=== PATIENT | male | born 1995 | race Caucasian/White ===

== ENCOUNTER 2022-06-22 15:47 | Outpatient (CLI) | payer BC, SELFPAY ==
[2022-06-22 17:29] LABS: Free T4 Free Thyroxine 1.34 ng/mL (0.78-2.19)
[2022-06-25 12:21] LABS: Testosterone Total 366 ng/dL (250-1100)
== END 2022-06-22 15:48 | disposition home or self-care (01) ==
LOC: ANHLAB 15:48
PROVIDERS: PCP Family Medicine; Visit Provider Family Medicine
DX: E03.9 Hypothyroidism, unspecified (principal); E66.8 Other obesity
CPT/HCPCS: 36415; 84402; 84403; 84439; 84443; 84480

== ENCOUNTER 2022-09-18 09:25 | Outpatient (CLI) | payer BC, SELFPAY ==
[2022-09-18 10:02] LABS: Basophils Absolute Auto 0.1 K/mm3 (0.0-0.1); Eosinophils Absolute Auto 0.2 K/mm3 (0-0.3); Eosinophils Percent Auto 2.4 % (0-4.4); Hematocrit 45.8 % (42.0-52.0); Hemoglobin 15.2 g/dL (14.0-18.0); Immature Granulocyte Absolute 0.03 K/mm3 (0.00-0.031); Immature Granulocyte Percent A 0.4 % (0-0.5); Lymphocytes Absolute Auto 2.25 K/mm3 (0.9-3.2); Lymphocytes Percent Auto 31.5 % (18.3-44.2); Mean Corpuscular HGB Conc 33.2 g/dl (32-36); Mean Corpuscular Hemoglobin 30.2 pg (26-34); Mean Corpuscular Volume 90.9 fl (80-100); Mean Platelet Volume 11.1 fl (7.4-10.4); Monocytes Absolute Auto 0.5 K/mm3 (0.1-0.6); Monocytes Percent Auto 7.4 % (2.6-8.5); Neutrophils Absolute Auto 4.1 K/mm3 (1.3-6.7); Neutrophils Percent Auto 57.3 % (45.5-73.1); Platelet Count Result 216 k/mm3 (150-375); Red Blood Count 5.04 M/mm3 (4.6-6.20); Red Cell Distribution Width 12.6 % (11.5-14.5); White Blood Count 7.1 K/mm3 (4.5-10.0)
[2022-09-18 10:18] LABS: Alanine Aminotransferase 25 U/L (6-50); Albumin Level 4.4 g/dL (3.5-5.1); Alkaline Phosphatase 60 U/L (38-126); Anion Gap 3 mmol/L (8-16); Aspartate Amino Transferase 25 U/L (17-59); Bilirubin,Total 0.9 mg/dL (0.2-1.3); Blood Urea Nitrogen 17 mg/dL (9-20); Calcium 8.3 mg/dL (8.4-10.2); Carbon Dioxide 32 mmol/L (22-30); Chloride 104 mmol/L (98-107); Cholesterol 113 mg/dL (0-200); Estimated Glomerular Filt Rate > 60; Glucose 84 mg/dL (65-110); HDL Direct 29 mg/dL; Potassium 4.1 mmol/L (3.4-5.0); Sodium 139 mmol/L (137-145); Triglycerides 101 mg/dL (<150)
[2022-09-18 10:29] LABS: LDL Cholesterol Direct 65 mg/dL
== END 2022-09-18 09:26 | disposition home or self-care (01) ==
LOC: ANHLAB 09:27
PROVIDERS: PCP Family Medicine; Visit Provider Family Medicine
DX: E03.9 Hypothyroidism, unspecified (principal); E78.2 Mixed hyperlipidemia; I10 Essential (primary) hypertension
CPT/HCPCS: 36415; 80053; 80061; 84439; 84443; 84480; 85025

== ENCOUNTER 2023-06-12 09:34 | Outpatient (CLI) | payer BC, SELFPAY ==
[2023-06-12 10:15] LABS: Alanine Aminotransferase 20 U/L (6-50); Albumin Level 4.2 g/dL (3.5-5.1); Alkaline Phosphatase 71 U/L (38-126); Anion Gap 5 mmol/L (8-16); Aspartate Amino Transferase 23 U/L (17-59); Bilirubin,Total 0.6 mg/dL (0.2-1.3); Blood Urea Nitrogen 20 mg/dL (9-20); Calcium 8.8 mg/dL (8.4-10.2); Carbon Dioxide 28 mmol/L (22-30); Chloride 106 mmol/L (98-107); Estimated Glomerular Filt Rate > 60; Glucose 93 mg/dL (65-110); Potassium 4.1 mmol/L (3.4-5.0); Sodium 139 mmol/L (137-145)
[2023-06-12 11:37] LABS: Free T4 Free Thyroxine 1.18 ng/mL (0.78-2.19)
[2023-06-16 05:38] LABS: Triiodothyronine T3 Free 3.2 pg/mL (2.3-4.2)
== END 2023-06-12 09:35 | disposition home or self-care (01) ==
LOC: ANHLAB 09:35
PROVIDERS: PCP Family Medicine; Visit Provider Physician Assistant
DX: E03.9 Hypothyroidism, unspecified (principal); I10 Essential (primary) hypertension
CPT/HCPCS: 36415; 80053; 84439; 84443; 84481

== ENCOUNTER 2024-02-19 08:46 | Outpatient (CLI) | payer BC, SELFPAY ==
[2024-02-19 09:10] LABS: Basophils Percent Auto 0.6 % (0.2-1.2); Eosinophils Absolute Auto 0.2 K/mm3 (0-0.3); Eosinophils Percent Auto 2.3 % (0-4.4); Hemoglobin 16.2 g/dL (14.0-18.0); Immature Granulocyte Absolute 0.02 K/mm3 (0.00-0.031); Immature Granulocyte Percent A 0.3 % (0-0.5); Lymphocytes Absolute Auto 1.96 K/mm3 (0.9-3.2); Lymphocytes Percent Auto 27.9 % (18.3-44.2); Mean Corpuscular HGB Conc 34.5 g/dl (32-36); Mean Corpuscular Hemoglobin 30.6 pg (26-34); Mean Corpuscular Volume 88.8 fl (80-100); Mean Platelet Volume 10.8 fl (7.4-10.4); Monocytes Absolute Auto 0.4 K/mm3 (0.1-0.6); Neutrophils Absolute Auto 4.4 K/mm3 (1.3-6.7); Neutrophils Percent Auto 62.9 % (45.5-73.1); Platelet Count Result 203 k/mm3 (150-375); Red Blood Count 5.29 M/mm3 (4.6-6.20); Red Cell Distribution Width 12.9 % (11.5-14.5)
[2024-02-19 09:25] LABS: Alanine Aminotransferase 24 U/L (6-50); Albumin Level 4.3 g/dL (3.5-5.1); Alkaline Phosphatase 68 U/L (38-126); Anion Gap 6 mmol/L (4-12); Aspartate Amino Transferase 29 U/L (17-59); Bilirubin,Total 0.7 mg/dL (0.2-1.3); Blood Urea Nitrogen 20 mg/dL (9-20); Calcium 8.8 mg/dL (8.4-10.2); Carbon Dioxide 28 mmol/L (22-30); Chloride 104 mmol/L (98-107); Cholesterol 131 mg/dL (0-200); Estimated Glomerular Filt Rate > 60; Glucose 94 mg/dL (65-110); HDL Direct 41 mg/dL; Potassium 4.7 mmol/L (3.4-5.0); Sodium 138 mmol/L (137-145); Triglycerides 78 mg/dL (<150)
[2024-02-19 09:36] LABS: LDL Cholesterol Direct 63 mg/dL
[2024-02-19 09:56] LABS: Total Triiodothyronine (T3) 1.69 NG/ML (0.97-1.69)
[2024-02-19 10:17] LABS: Free T4 Free Thyroxine 0.89 ng/mL (0.78-2.19)
== END 2024-02-19 08:47 | disposition home or self-care (01) ==
LOC: ANHLAB 08:50
PROVIDERS: PCP Family Medicine; Visit Provider Family Medicine
DX: E03.9 Hypothyroidism, unspecified (principal); I10 Essential (primary) hypertension; E78.2 Mixed hyperlipidemia
CPT/HCPCS: 36415; 80053; 80061; 84439; 84443; 84480; 85025

== ENCOUNTER 2024-06-20 08:02 | Outpatient (CLI) | payer BC, SELFPAY ==
--- OUTSIDE RECORDS SUMMARY | 2024-06-20 08:16 | XMS_ITS | Encounter Summary ---
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
--- OUTSIDE RECORDS SUMMARY | 2024-06-20 08:16 | XMS_ITS | Clinical Summary ---
Author Organization [facility] Address [address] [facility] [place] [address] Care Team Providers Care Leveling Machine Operator Name Role Phone Latanya Edward MD Primary Care Provider [phone] Source Comments [facility],non-[facility] Affiliates and Associated Physician Practices is amultiple site organization consisting of ambulatory clinics and hospital sitesin [place], [place], [place] and [place]. This disclosure is being madepursuant to the Care Everywhere program and may not contain all information available regarding this patient. Last updated 17.[facility] Allergies Active Allergy Reactions Criticality Noted Date Comments Cefprozil 05/22/2010 Medications * Be aware that medications may not be up to date on this document. Alwaysverify current medications with the patient. Medication Sig Dispensed Refills Start Date End Date Status citalopram (CELEXA) 40 MG tablet Take 40 mg by mouth daily. Active methylphenidate CR (CONCERTA) 36 MG tablet Take 36 mg by mouth every morning. Active methylphenidate CR (CONCERTA) 54 MG tablet Take 54 mg by mouth every morning. Active ziprasidone (GEODON) 40 MG capsule Take 20 mg by mouth once daily. Active BuPROPion HCl (WELLBUTRIN XL PO) Take by mouth. Ac tive nystatin (MYCOSTATIN) 229743 UNIT/GM ointment Apply to affected area 2 times daily. 30 g 3 02/01/2012 Active ferrous sulfate 325 (65 FE) MG tablet Take 1 Tab by mouth 2 times daily. Take w/ vitamin C such as OJ. Avoid dairy within 30 minutes. Miralax or generic for tummy upset. 62 Tab 2 05/10/2012 Active levothyroxine (SYNTHROID) 50 MCG tabletIndications:Unspe cified hypothyroidism Take 1 Tab by mouth daily before breakfast. 90 Tab 1 01/29/2014 Active levothyroxine (SYNTHROID) 200 MCG tabletIndications:Unspe cified hypothyroidism Take 1 Tab by mouth once daily 90 Tab 1 10/08/2014 Active Active Problems Problem Noted Date Diagnosed Date Hypothyroidism 01/24/2013 Overview (12/27/2014): Assessment & Plan (01/24/2013 2:48 PM CDT): 1) return in [address] Fink 2) continue levothyroxine 250 mcg daily Social History Tobacco Use Types Packs/Day Years Used Date Smoking Tobacco: Never Alcohol Use Standard Drinks/Week Comments Not Asked 0 (1 standard drink = 0.6 oz pur e alcohol) Sex and Gender Information Value Date Recorded Sex Assigned at Not on file Gender Identity Not on file Sexual Orientation Not on file Last Filed Vital Signs Vital Sign Reading Time Taken Comments Blood Pressure 120/80 01/19/2013 9:57 AM CDT Pulse 88 01/19/2013 9:57 AM CDT Temperature - - Respiratory Rate 20 01/19/2013 9:57 AM CDT Oxygen Saturation - - Inhaled Oxygen Concentration - - Weight 187.8 kg (414 lb) 01/19/2013 9:57 AM CDT Height 181.5 cm (5' 11.46 ) 01/19/2013 9:57 AM C DT Body Mass Index 57.01 01/19/2013 9:57 AM CDT Plan of Treatment Health Maintenance Due Date Last Done Comments HIV SCREENING 06/07/2011 HEPATITIS C SCREENING 06/02/2014 DTAP/TDAP/TD VACCINES (1 - Tdap) 06/07/2015 HEPATITIS B VACCINE (1 of 3 - 19+ 3-dose series) 06/07/2015 COVID-19 VACCINE ( - 2023-2 5 season) 2023 INFLUENZA VACCINE (#1) 2023 DEPRESSION SCREENING 03/29/2024 ZOSTER VACCINE (1 of 2) 2046 HIB VACCINE Aged Out No longer eligi ble based on patient's age to complete this topic HPV VACCINE Aged Out No longer eligi ble based on patient's age to complete this topic MENINGOCOCCAL (Group B) VACC INE SHARED DECISION-MAKING Aged Out No longer eligibl e based on patient's age to complete this topic MENINGOCOCCAL GROUPS A/C/Y/W VACCINE Aged Out No longer eligible b ased on patient's age to complete this topic PNEUMOCOCCAL VACCINE Aged Out No long er eligible based on patient's age to complete this topic Care Teams Leveling Machine Operator Relationship Specialty Start Date End Date Latanya Edward MD [address] [place] [address] PCP - General 04/13/11
--- OUTSIDE RECORDS SUMMARY | 2024-06-20 08:16 | XMS_ITS | Encounter Summary ---
Author Organization [employer] Address [address] [place] [address] Care Team Providers Care Retail Cosmetics Sales Counter Manager Name Role Phone Unavailable Primary Care Provider Unavailabl e Encounter Details Date Type Department Care Team (Late st Contact Info) Description 06/08/2007 Outpatient Historical [facility], Authorized P [place] [address] [facility] [place] [address] [place] [address] [place] [address] Social History Tobacco Use Types Packs/Day Years Used Date Smoking Tobacco: Never Assessed Sex and Gender Information Value Date Recorded Sex Assigned at Not on file 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
--- OUTSIDE RECORDS SUMMARY | 2024-06-20 08:16 | XMS_ITS | Encounter Summary ---
Author Organization [facility] Address [address] [facility] [place] [address] Care Team Providers Care Solderer Torch Name Role Phone Carlos Garcia MD Primary Care Provider Faustino Edward MD Primary Care Provider [phone] Reason for Visit * Reason Onset Date Comments Parent Return Call 10/10/2010 Encounter Details Date Type Department Care Team (Late st Contact Info) Description 10/10/2010 Telephone [facility] Pediatrics - Endocrinology [address] [place] [address] [place] [address] [place] [address] Parent Return Call Social History Tobacco Use Types Packs/Day Years Used Date Smoking Tobacco: Never Assessed Sex and Gender Information Value Date Recorded Sex Assigned at Not on file Gender Identity Not on file Sexual Orientation Not on file documented as of this encounter Miscellaneous Notes * Telephone Encounter - Jenny Ramesh - 10/10/2010 1:56 PM CDT Mrs. Ruiz returned your call. documented in this encounter Plan of Treatment Not on file documented as of this encounter Visit Diagnoses Not on filedocumented in this encounter Care Teams Solderer Torch Relationship Specialty Start Date End Date Carlos Garcia MD [address] [place] [address] PCP - General 05/22/10 04/12/11 Faustino Edward MD [address] [place] [address] PCP - General 04/13/11 documented as of this encounter
--- OUTSIDE RECORDS SUMMARY | 2024-06-20 08:16 | XMS_ITS | Patient Health Record ---
Author Organization [facility] Address [address] [place] [address] Care Team Providers Care Champagne Maker Name Role Phone Jacob Rogers Primary Care Provider [phone] Reason For Referral No Information Plan Of Treatment No Information
--- OUTSIDE RECORDS SUMMARY | 2024-06-20 08:16 | XMS_ITS | Clinical Summary ---
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
--- OUTSIDE RECORDS SUMMARY | 2024-06-20 08:16 | XMS_ITS | Encounter Summary ---
Author Organization [facility] Address [address] [facility] [place] [address] Care Team Providers Care Nurses Assistant Name Role Phone Carlos Garcia MD Primary Care Provider Faustino Edward MD Primary Care Provider [phone] Reason for Visit * Reason Onset Date Comments Results 07/17/2010 Mom would like t o get labs at [facility] in [place]. Please call her with instructions Encounter Details Date Type Department Care Team (Late st Contact Info) Description 07/17/2010 Telephone [facility] Pediatrics - Endocrinology [facility] [place] [address] [place] [address] [place] [address] Results (Mom would like to get labs at [facility] in [place]. Please call her with instructions) Social History Tobacco Use Types Packs/Day Years Used Date Smoking Tobacco: Never Assessed Sex and Gender Information Value Date Recorded Sex Assigned at Not on file Gender Identity Not on file Sexual Orientation Not on file documented as of this encounter Miscellaneous Notes * Telephone Encounter - Adriano Landrum MD - 07/23/2010 4:39 PM CDT Paco's TSH has risen to 17.82, confirming the diagnosis of primary hypothyroidism. I made mom aware of his results and asked her to restart his levothyroxine 175 mcg daily, the dose he was previously on. He will follow up as planned. documented in this encounter Plan of Treatment Scheduled Orders Name Type Priority Associated Diagnoses Orde r Schedule T4 TOTAL Lab Routine Acquired hypothyroidism Ordered: 07/17/2010 TSH Lab Routine Acquired hypothyroidism Ordered: 07/17/2010 documented as of this encounter Visit Diagnoses Diagnosis Acquired hypothyroidism- Primary Unspecified hypothyroidism documented in this encounter Care Teams Nurses Assistant Relationship Specialty Start Date End Date Carlos Garcia MD [address] [place] [address] PCP - General 05/22/10 04/12/11 Faustino Edward MD [address] [place] [address] PCP - General 04/13/11 documented as of this encounter
--- OUTSIDE RECORDS SUMMARY | 2024-06-20 08:16 | XMS_ITS | Encounter Summary ---
Author Organization [facility] Address [address] [facility] [address] Care Team Providers Care News Videotape Editor Name Role Phone Carlos Garcia MD Primary Care Provider Faustino Edward MD Primary Care Provider [phone] Reason for Visit * Reason Onset Date Comments Parent Return Call 03/06/2011 Mom called, w ants new dose called into pharmacy Encounter Details Date Type Department Care Team (Late st Contact Info) Description 03/06/2011 Telephone [facility] Pediatrics - Endocrinology [address] [place] [address] [place] [address] [place] [address] Parent Return Call (Mom called, wants new dose called into pharmacy) Social History Tobacco Use Types Packs/Day Years [...] hypothyroidism documented in this encounter Care Teams News Videotape Editor Relationship Specialty Start Date End Date Carlos Garcia MD [address] [place] [address] PCP - General 05/22/10 04/12/11 Faustino Edward MD [address] [place] [address] PCP - General 04/13/11 documented as of this encounter
[2024-06-20 09:52] LABS: Free T4 Free Thyroxine 1.49 ng/dL (0.78-2.19)
== END 2024-06-20 08:03 | disposition home or self-care (01) ==
LOC: ANHLAB 08:04
PROVIDERS: PCP Family Medicine; Visit Provider Physician Assistant
DX: E03.9 Hypothyroidism, unspecified (principal)
CPT/HCPCS: 36415; 84439; 84443

== ENCOUNTER 2024-11-29 08:41 | Outpatient (CLI) | payer BC, SELFPAY ==
--- OUTSIDE RECORDS SUMMARY | 2024-11-29 09:05 | XMS_ITS | Encounter Summary ---
Author Organization [facility] Address [address] [place] [address] Care Team Providers Care Inbound Sales Consultant Name Role Phone Unavailable Primary Care Provider Unavailabl e Encounter Details Date Type Department Care Team (Late st Contact Info) Description 06/08/2007 Emergency [facility], Authorized P [place] [address] [facility] [place] [address] [place] [address] [place] [address] Social History Tobacco Use Types Packs/Day Years Used Date Smoking Tobacco: Never Assessed Sex and Gender Information Value Date Recorded Sex Assigned at Not on file 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
--- OUTSIDE RECORDS SUMMARY | 2024-11-29 09:05 | XMS_ITS | Encounter Summary ---
Author Organization [facility] Address [address] [facility] [address] Care Team Providers Care Clothes Ironer Name Role Phone Carlos Garcia MD Primary Care Provider Faustino Edward MD Primary Care Provider [phone] Reason for Visit * Reason Onset Date Comments Parent Return Call 10/10/2010 Encounter Details Date Type Department Care Team (Late st Contact Info) Description 10/10/2010 Telephone [facility] Pediatrics - Endocrinology [address] [place] [address] [place] [address] [place] [address] Parent Return Call Social History Tobacco Use Types Packs/Day Years Used Date Smoking Tobacco: Never Assessed Sex and Gender Information Value Date Recorded Sex Assigned at Not on file 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 Ruiz returned your call. documented in this encounter Plan of Treatment Not on file documented as of this encounter Visit Diagnoses Not on filedocumented in this encounter Care Teams Clothes Ironer Relationship Specialty Start Date End Date Carlos Garcia MD [address] [place] [address] PCP - General 05/22/10 04/12/11 Faustino Edward MD [address] [place] [address] PCP - General 04/13/11 documented as of this encounter
--- OUTSIDE RECORDS SUMMARY | 2024-11-29 09:05 | XMS_ITS | Encounter Summary ---
Author Organization [facility] Address [address] [place] [place] [address] Care Team Providers Care Assistant Broker Name Role Phone Carlos Garcia MD Primary Care Provider Faustino Edward MD Primary Care Provider [phone] Reason for Visit * Reason Onset Date Comments Results 07/17/2010 Mom would like t o get labs at [facility] in [place]. Please call her with instructions Encounter Details Date Type Department Care Team (Late st Contact Info) Description 07/17/[address] [facility] Pediatrics - Endocrinology [address] [place] [address] [place] [address] [place] [address] Results (Mom would like to get labs at [facility] in [place]. 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
--- OUTSIDE RECORDS SUMMARY | 2024-11-29 09:05 | XMS_ITS | Clinical Summary ---
Author Organization [facility] Address [address] [facility] [place] [address] Care Team Providers Care Special Delivery Clerk Name Role Phone Latanya Edward MD Primary Care Provider [phone] Source Comments [facility],non-[facility] Affiliates and Associated Physician Practices is amultiple site organization consisting of ambulatory clinics and hospital sitesin [place], [place], [place] and [place]. This disclosure is being madepursuant to the Care Everywhere program and may not contain all information available regarding this patient. Last updated 17.[facility] Allergies Active Allergy Reactions Criticality Noted Date Comments Cefprozil 05/22/2010 Medications * Be aware that medications may not be up to date on this document. Alwaysverify current medications with the patient. citalopram (CELEXA) 40 MG tablet Take 40 mg by mouth daily. Active methylphenidate CR (CONCERTA) 36 MG tablet Take 36 mg by mouth every morning. Active methylphenidate CR (CONCERTA) 54 MG tablet Take 54 mg by mouth every morning. Active ziprasidone (GEODON) 40 MG capsule Take 20 mg by mouth once daily. Active BuPROPion HCl (WELLBUTRIN XL PO) Take by mouth. Active nystatin (MYCOSTATIN) 451309 UNIT/GM ointment Apply to affected area 2 times daily. 30 g 3 2 Active ferrous sulfate 325 (65 FE) MG tablet Take 1 Tab by mouth 2 times daily. Take w/ vitamin C such as OJ. Avoid dairy within 30 minutes. Miralax or generic for tummy upset. 62 Tab 2 3 Active levothyroxine (SYNTHROID) 50 MCG tabletIndications:U nspecified hypothyroidism Take 1 Tab by mouth daily before breakfast. 90 Tab 1 4 Active levothyroxine (SYNTHROID) 200 MCG tabletIndications:U nspecified hypothyroidism Take 1 Tab by mouth once daily 90 Tab 1 5 Active Active Problems Problem Noted Date Diagnosed [...] on file Legal Sex Male 5:39 AM INTEGRATION SPECIALIST Gender Identity Not on file Sexual [...] 9:57 AM CDT Height 181.5 cm (5' 11.46) 01/19/2013 9:57 AM C DT Body Mass Index 57.01 01/19/2013 9:57 AM CDT Plan of Treatment Health Maintenance Due Date Last Done Comments HIV SCREENING 06/07/2011 HEPATITIS C SCREENING 06/02/2014 DTAP/TDAP/TD VACCINES (1 - Tdap) 06/07/2015 HEPATITIS B VACCINE (1 of 3 - 19+ 3-dose series) 06/07/2015 HPV VACCINE (1 - 3-dose SCDM series) 06/07/2023 DEPRESSION SCREENING 03/29/2024 COVID-19 VACCINE (2023-2 5 season) 2024 INFLUENZA VACCINE (#1) 2024 ZOSTER VACCINE (1 of 2) 2046 HIB [...] on patient's age to complete this topic Insurance [facility] Care Teams Special Delivery Clerk Relationship Specialty Start Date End Date Latanya Edward MD [address] [place] [address] PCP - General 04/13/11
--- OUTSIDE RECORDS SUMMARY | 2024-11-29 09:05 | XMS_ITS | Encounter Summary ---
Author Organization [facility] Address [address] [facility] [place] [address] Care Team Providers Care Lamp Assembler Name Role Phone Carlos Garcia MD Primary Care Provider Faustino Edward MD Primary Care Provider [phone] Reason for Visit * Reason Onset Date Comments Parent Return Call 03/06/2011 Mom called, w ants new dose called into pharmacy Encounter Details Date Type Department Care Team (Late st Contact Info) Description 03/06/2011 Telephone [facility] Pediatrics - Endocrinology [address] [facility] 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
--- OUTSIDE RECORDS SUMMARY | 2024-11-29 09:05 | XMS_ITS | Clinical Summary ---
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
--- OUTSIDE RECORDS SUMMARY | 2024-11-29 09:05 | XMS_ITS | Encounter Summary ---
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
[2024-11-29 09:46] LABS: Free T4 Free Thyroxine 1.36 ng/dL (0.78-2.19)
[2024-11-29 10:00] LABS: Thyroid Stimulating Hormone 4.700 uIU/mL (0.465-4.680)
== END 2024-11-29 08:42 | disposition home or self-care (01) ==
LOC: ANHLAB 08:45
PROVIDERS: PCP Family Medicine; Visit Provider Physician Assistant
DX: E03.9 Hypothyroidism, unspecified (principal)
CPT/HCPCS: 36415; 84439; 84443

== ENCOUNTER 2025-02-13 07:32 | Emergency (ER) | payer BC, SELFPAY ==
--- NOTE | ~2025-02-13 | XR_ITS ---
EXAMINATION: XR chest 2V DATE: 02/13/2025 08:36 INDICATION: Lower limb swelling TECHNIQUE: PA and lateral views of the chest were obtained. COMPARISON: Chest radiograph dated 05/26/2017 FINDINGS: The lungs remain clear with no focal airspace opacities, pulmonary edema, pleural effusion or pneumothorax. The cardiomediastinal silhouette is normal. Visualized bones and soft tissues are unremarkable. IMPRESSION: 1. Normal chest radiograph. Reviewed, dictated and finalized at location A. [facility] [employer] IMPRESSION: 1. Normal chest radiograph.
--- NOTE | ~2025-02-13 | US_ITS ---
RIGHT LOWER EXTREMITY VENOUS DUPLEX Clinical History: leg swelling COMPARISON: None TECHNIQUE: Grayscale, color, duplex/spectral Doppler sonography right leg FINDINGS: Right leg common femoral, femoral, popliteal, and calf veins compressible and color Doppler patent. Normal augmentation with distal compression. No internal echoes. IMPRESSION: 1. No right leg DVT identified. Reviewed, dictated and finalized at location R. [facility]
[2025-02-13 07:38] VITALS: BP 177/109; PULSE 97; RESP 16; TEMP 36.6; O2SAT 99
--- NOTE | 2025-02-13 08:00 | ECG_ITS ---
Test Date: 2025-02-13 08:15:51 Measurements Intervals [place] Rate: 76 P: 40 ID: [id number] QRS: -2 QRSD: 110 T: 33 QT: 373 QTc: 420 Interpretive Statements SINUS RHYTHM NORMAL ECG No previous ECG available for comparison Electronically Signed On 02-13-2025 09:04:12 CEMENTING BULK MATERIAL OPERATOR by Onel Coto M.D.
--- NOTE | 2025-02-13 08:01 | ED_ITS ---
HPI - General Adult General Chief complaint: Extremity Injury, Lower Stated complaint: lower leg swelling/redness/ worried about dvt Time Seen by Provider: 02/13/25 07:55 History of Present Illness HPI narrative: 29-year-old male with history of obesity and hypertension presenting to the emergency department for evaluation for bilateral lower leg swelling. Patient states he was having some swelling in both legs and thought it was most likely water retention. Patient states this has improved but he is still having some swelling of the right posterior calf and is concerned about a DVT. Patient denies any prior cardiac history. Patient states he does have close follow-up with his primary care physician. Related Data Allergies Allergy/AdvReac Type Severity Reaction Status Date / Time Cephalosporins Allergy Mild HIVES Verified 02/13/25 07:34 povidone Allergy Mild hives Verified 02/13/25 07:34 Review of Systems 2 Review of Systems: All systems reviewed & are unremarkable except as noted in HPI and below PMFSH Past Medical History Medical History Elevated BP without diagnosis of hypertension Wrist swelling Screening for diabetes mellitus (DM) Hypothyroidism (acquired) Dietary counseling and surveillance (08/01/18) Chewing tobacco nicotine dependence Morbid (severe) obesity due to excess calories Adult hypothyroidism Family History Family History Father Family history of mental disorder Hypertension Grandparent Malignant neoplasm of prostate, Onset Age: 70 Mother Heart disease Social History Social History Social History: Single Smoking status: Smoker, status unknown (Chews tobacco 1/2can daily) Tobacco type: smokeless tobacco Smokeless tobacco user: chewing tobacco Second hand tobacco smoke exposure: Yes Alcohol intake: current Alcohol use details: twice a month Substance use: never Substance use type: does not use Do You Feel Safe in your Home?: Yes Lack of Transportation: No Lack of Food: Never True Current Housing: I Have Housing Concerned About Future Housing: No Difficulty Paying Gas/Electric Bills: No Difficulty Paying for Meds: No Currently Unemployed: No Education: Decline to Answer Difficulty w/ Childcare or Family Care: No Living arrangements: with family Occupation/Education: occupation Gender identity (if verbalized by the patient): Male Sexual Orientation (if Verbalized by the Patient): Straight or Heterosexual Exam 2 Narrative: APPEARANCE: Well appearing, no pain, no distress, well-nourished. HEAD: normocephalic, atraumatic. EYES: PERRLA/EOMI, conjunctivae clear. NOSE: Normal no drainage EARS:TMS clear with good light reflex. THROAT: Pharynx clear, no exudate. NECK: Supple. No adenopathy, no masses. RESPIRATORY: Airway patent, respirations nonlabored. Clear to auscultation bilaterally, no rales, rhonchi, wheezing. CARDIOVASCULAR: Regular rate and rhythm without murmurs rubs or gallops. ABDOMINAL: Soft, nontender, nondistended, normal bowel sounds MUSCULOSKELETAL: Tenderness to right posterior calf, no significant pedal edema NEURO: Alert. Cranial nerves II through XII intact. Good gait. Good coordination SKIN: Warm, dry. Normal Color Course Vital Signs Vital signs: Vital Signs Temperature 97.9 F 02/13/25 07:38 Pulse Rate 97 02/13/25 07:38 Respiratory Rate 16 02/13/25 07:38 Blood Pressure 177/109 H 02/13/25 07:38 Pulse Oximetry 99 02/13/25 07:38 Oxygen Delivery Room Air 02/13/25 07:38 Temperature 97.9 F 02/13/25 07:38 Pulse Rate 82 02/13/25 09:59 Respiratory Rate 16 02/13/25 09:59 Blood Pressure 134/78 02/13/25 09:59 Pulse Oximetry 98 02/13/25 09:59 Oxygen Delivery Room Air 02/13/25 07:[address] [facility] Narrative Medical decision making narrative: 29-year-old male presents to the emergency department for evaluation for lower extremity swelling worse on the right than left. Patient is currently afebrile with no leukocytosis and a stable hemoglobin. INR is 1.0. No acute abnormalities on his CMP proBNP is not elevated. Ultrasound was negative for DVT. Chest x-ray showed no acute cardiopulmonary abnormality. continue to have close outpatient follow-up with your primary care physician. Differential Diagnosis Differential Diagnosis: Heart failure, pneumonia, DVT, cellulitis Vital Signs Vital Signs: Vital Signs Temperature 97.9 F 02/13/25 07:38 Pulse Rate 97 02/13/25 07:38 Respiratory Rate 16 02/13/25 07:38 Blood Pressure 177/109 H 02/13/25 07:38 Pulse Oximetry 99 02/13/25 07:38 Oxygen Delivery Room Air 02/13/25 07:38 Temperature 97.9 F 02/13/25 07:38 Pulse Rate 82 02/13/25 09:59 Respiratory Rate 16 02/13/25 09:59 Blood Pressure 134/78 02/13/25 09:59 Pulse Oximetry 98 02/13/25 09:59 Oxygen Delivery Room Air 02/13/25 07:38 Lab Data Lab results reviewed: Yes I reviewed the patient's lab results. 02/13/25 08:14 02/13/25 08:14 Labs: Lab Results 02/13/25 02/13/25 Range/Units 08:14 09:07 WBC 5.7 (4.5-10.0) K/mm3 RBC 5.25 (4.6-6.20) M/mm3 Hgb 15.6 (14.0-18.0) g/dL Hct 45.6 (42.0-52.0) % MCV 86.9 (80-100) fl MCH 29.7 (26-34) pg MCHC 34.2 (32-36) g/dl RDW 12.5 (11.5-14.5) % Plt Count 212 (150-375) k/mm3 MPV 11.1 H (7.4-10.4) fl Immature Gran % (Auto) 0.5 (0-0.5) % Neut % (Auto) 64.4 (45.5-73.1) % Lymph % (Auto) 25.9 (18.3-44.2) % [place] % (Auto) 6.7 (2.6-8.5) % Eos % (Auto) 1.8 (0-4.4) % Baso % (Auto) 0.7 (0.2-1.2) % Lymph # (Auto) 1.48 (0.9-3.2) K/mm3 [place] # (Auto) 0.4 (0.1-0.6) K/mm3 Eos # (Auto) 0.1 (0-0.3) K/mm3 Baso # (Auto) 0.0 (0.0-0.1) K/mm3 Abs Immat Gran (auto) 0.03 (0.00-0.031) K/mm3 Absolute Neuts (auto) 3.7 (1.3-6.7) K/mm3 Absolute Nucleated RBC 0.000 (0.0-0.012) K/mm3 Nucleated RBC % 0.0 (0.0-0.2) % PT 13.8 (11.1-14.7) Seconds INR 1.0 APTT 32.6 (22.3-36.8) Seconds Sodium 138 (137-145) mmol/L Potassium 4.4 (3.4-5.0) mmol/L Chloride 104 (98-107) mmol/L Carbon Dioxide 27 (22-30) mmol/L Anion Gap 7 (4-12) mmol/L BUN 14 D (9-20) mg/dL Creatinine 0.84 (0.7-1.3) mg/dL Estim Creat Clear Calc 212 ml/min Estimated GFR > 60 (59 - ) Glucose 109 (65-110) mg/dL Calcium 8.5 (8.4-10.2) mg/dL Total Bilirubin 0.5 (0.2-1.3) mg/dL AST 23 (17-59) U/L ALT 21 (6-50) U/L Alkaline Phosphatase 69 (38-126) U/L NT-Pro-B Natriuret Pep 59 (19.9-100) pg/mL Total Protein 7.4 (6.3-8.2) g/dL Albumin 4.2 (3.5-5.1) g/dL Urine Color Yellow (Yellow) Urine Appearance Clear (Clear) Urine pH 6.5 (5.0-9.0) Ur Specific [place] 1.016 (1.001-1.035) Urine Protein Negative (Negative) mg/dL Urine Glucose (UA) Negative (Negative) mg/dL Urine Ketones Negative (Negative) mg/dL Ur Blood (Man) Negative (Negative) Urine Nitrate Negative (Negative) Urine Bilirubin Negative (Negative) Urine Urobilinogen 1.0 (<2.0) mg/dL Leukocyte Esterase Rfl Negative (Negative) JON/UL Imaging Data Attestation: I personally reviewed and interpreted this imaging study as follows: My impression: chest x-ray: No acute cardiopulmonary abnormality Radiologist's impression: Impressions Chest X-Ray 02/13/25 08:38 IMPRESSION: 1. Normal chest radiograph. Venous Doppler Study 02/13/25 09:05 IMPRESSION: 1. No right leg DVT identified. Discharge Plan Discharge Clinical Impression: Leg swelling Patient Disposition: Home Condition: Stable Instructions: Antibiotic Form, Leg Edema (ED) Additional Instructions: Continue to have close outpatient follow-up with your primary care physician. If you have any worsening symptoms then please call or return to the emergency department. Patient Language: Armenian Prescriptions: No Action levothyroxine 150 mcg tablet 150 mcg PO DAILY Qty: 112 0RF Rx Instructions: Take 1 tablet -Wednesday and 2 tablets on Wednesday liothyronine 5 mcg tablet See Rx Instructions .ROUTE .COMPLEX Qty: 90 1RF Dose Instruction: TAKE 1 TABLET BY MOUTH DAILY Rx Instructions: TAKE 1 TABLET BY MOUTH DAILY Follow-up/Referrals: Priyank Angel MD [Physician, Family Practice] Stand Alone Forms: Work/School Release IP
[2025-02-13 08:20] LABS: Hematocrit 45.6 % (42.0-52.0); Hemoglobin 15.6 g/dL (14.0-18.0); Immature Granulocyte Percent A 0.5 % (0-0.5); Lymphocytes Absolute Auto 1.48 K/mm3 (0.9-3.2); Mean Corpuscular HGB Conc 34.2 g/dl (32-36); Mean Corpuscular Hemoglobin 29.7 pg (26-34); Mean Corpuscular Volume 86.9 fl (80-100); Nucleated Red Blood Cells Absolute Auto 0.000 K/mm3 (0.0-0.012); Nucleated Red Blood Cells Perc 0.0 % (0.0-0.2); Platelet Count Result 212 k/mm3 (150-375); Red Blood Count 5.25 M/mm3 (4.6-6.20); White Blood Count 5.7 K/mm3 (4.5-10.0)
[2025-02-13 08:32] LABS: Alanine Aminotransferase 21 U/L (6-50); Albumin Level 4.2 g/dL (3.5-5.1); Alkaline Phosphatase 69 U/L (38-126); Anion Gap 7 mmol/L (4-12); Aspartate Amino Transferase 23 U/L (17-59); Bilirubin,Total 0.5 mg/dL (0.2-1.3); Blood Urea Nitrogen 14 mg/dL (9-20); Calcium 8.5 mg/dL (8.4-10.2); Carbon Dioxide 27 mmol/L (22-30); Chloride 104 mmol/L (98-107); Estimated CRCL calculation 212 ml/min; Estimated Glomerular Filt Rate > 60; Glucose 109 mg/dL (65-110); INR 1.0; Partial Thromboplastin Time 32.6 Seconds (22.3-36.8); Potassium 4.4 mmol/L (3.4-5.0); Prothrombin Time 13.8 Seconds (11.1-14.7); Sodium 138 mmol/L (137-145); Total Protein 7.4 g/dL (6.3-8.2)
[2025-02-13 08:40] LABS: NT Pro B Type Natriuretic Pept 59 pg/mL (19.9-100)
[2025-02-13 09:17] LABS: Add Urine Microscopic? NO; Appearance Urine Clear (Clear); Glucose Urine UA Negative (Negative); Leukocyte Esterase Ur Negative LEU/UL (Negative); Nitrate Urine Negative (Negative); Specific Grav Ur 1.016 (1.001-1.035)
[2025-02-13 09:59] VITALS: BP 134/78; PULSE 82; RESP 16; O2SAT 98
== END 2025-02-13 10:02 | disposition home or self-care (01) ==
LOC: ANHED 09:32
PROVIDERS: Emergency Provider Emergency Medicine; PCP Physician Assistant
DX: R22.43 Localized swelling, mass and lump, lower limb, bilateral (principal); E03.9 Hypothyroidism, unspecified; F17.220 Nicotine dependence, chewing tobacco, uncomplicated
CPT/HCPCS: 36415; 71046; 80053; 81003; 83880; 85025; 85610; 85730; 93005; 93971; 99284